=== PATIENT | female | born 1940 | race Caucasian/White ===

== ENCOUNTER → 2016-09-26 | Outpatient (CLI) | payer OTHER ==
[~2016-09-26] MED LIST: ACET-1138 PO; ASPEC81 PO; CALC500C70 PO; IBUP-103 PO; LEVO25TA34 PO; LORA-741 PO; MULT-506 PO; ONDA8TAB6 PO; OXYC-57 PO; OXYSR10 PO; PRED1SUS3 OPB; RXC5 PO; SNK PO
--- NOTE | 2016-09-26 15:01 | MAMMOGRAPHY REPORT ---
BILATERAL DIGITAL SCREENING MAMMOGRAM WITH CAD: 09/26/2016 CLINICAL HISTORY: Routine screening. Patient has no complaints. TECHNIQUE: Current study was also evaluated with a Computer Aided Detection (CAD) system. Bilatera l CC and MLO views were obtained. COMPARISON: Comparison is made to exams dated: 09/29/2014 mammogram, 09/22/2014 mammogram, 09/18/2012 mammogram, 08/23/2011 mammogram, and 09/21/2013 mammogram - [facility]. BREAST COMPOSITION: There are scattered areas of fibroglandular density in both breasts. FINDINGS: No suspicious masses, calcifications, or areas of architectural distortion are noted in e ither breast. There has been no significant interval change compared to prior exams. Bilateral jannette gn-appearing calcifications are not significantly changed. Oval benign-appearing 17 mm mass seen wi thin the right upper outer quadrant is stable dating back to at least the 2006 exam. IMPRESSION: ACR BI-RADS CATEGORY 2: BENIGN There is no mammographic evidence of malignancy. A 1 year screening mammogram is recommended. The p atient will receive written notification of the results. Approximately 10% of breast cancers are not detected with mammography. A negative mammographic repor t should not delay biopsy if a clinically suggestive mass is present. Valentina Jacobs M.D. /:09/26/2016 13:37:03 Artificial Insemination Technician: Jessa Mejia [facility] letter sent: Normal 1/2 BI-RADS Code: ACR BI-RADS Category 2: Benign
== END | disposition home or self-care (01) ==
LOC: C.MAMM 11:19
PROVIDERS: ATTEND Student in an Organized Health Care Education/Training Program
DX: Z12.31 Encounter for screening mammogram for malignant neoplasm of breast (principal)

== ENCOUNTER 2016-09-27 05:41 | Inpatient (IN) | payer OTHER ==
[2016-09-11 10:25] VITALS: BMI 35.0
--- NOTE | 2016-09-11 11:00 | PAT Medication Instructions ---
Service Date Sep 11, 2016. Current Home Medication List Calcium/Vitamin D (Os-Philip 500 Plus D), 1 TAB PO BID Ibuprofen Tab (Advil), 200 MG PO PRN Levothyroxine (Levoxyl), 0.025 MG PO QAM Lorazepam (Ativan), 0.5 MG PO PRN Multivitamin (Multivitamin), 1 TAB PO QPM Oxycodone/Acetaminophen 5MG/325MG (Percocet 5MG/325MG), 1 TABLET PO Q4H PRN for Pain Prednisolone Acetate (Ophth) (Pred Forte 1% Oph), 1 DROP OPB QAM Medication Instructions For Your Scheduled Surgery Ibuprofen Tab (Advil), 200 MG PO PRN (check with surgeon for instructions) - Hold the following medications the morning of surgery: Calcium/Vitamin D (Os-Philip 500 Plus D), 1 TAB PO BID - Take the following medications the morning of surgery with a sip of water: Prednisolone Acetate (Ophth) (Pred Forte 1% Oph), 1 DROP OPB QAM Lorazepam (Ativan), 0.5 MG PO PRN Levothyroxine (Levoxyl), 0.025 MG PO QAM Oxycodone/Acetaminophen 5MG/325MG (Percocet 5MG/325MG), 1 TABLET PO Q4H PRN for Pain (okay to take up to 4 hours prior to surgery if needed) - Take the following medications as scheduled the night before surgery: Multivitamin (Multivitamin), 1 TAB PO QPM Lorazepam (Ativan), 0.5 MG PO PRN Calcium/Vitamin D (Os-Philip 500 Plus D), 1 TAB PO BID Oxycodone/Acetaminophen 5MG/325MG (Percocet 5MG/325MG), 1 TABLET PO Q4H PRN for Pain If you have any questions please call us at [phone] (Michela Angela PA-C) or [phone] or [phone]
[2016-09-11 11:31] LABS: BASO % 0.5 %; BASO ABS # 0.03 K/uL (0-0.2); COMPLETE YES; EOS % 1.9 %; IG% 0.2 %; LYMPH % 25.5 %; MEAN CELL VOLUME 90.9 fL (80-100); MEAN CORPUSCULAR HEMOGLOBIN 29.5 pg (25-34); MEAN CORPUSCULAR HGB CONC 32.5 g/dl (32-36); MEAN PLATELET VOLUME 9.3 fL (7.4-10.4); MONO % 4.4 %; NEUT % 67.5 %; PLATELET COUNT 288 K/uL (130-400); WHITE BLOOD COUNT 5.88 K/uL (4.8-10.8)
--- NOTE | 2016-09-11 11:32 | DIAGNOSTIC IMAGING REPORT ---
TWO VIEW CHEST CLINICAL HISTORY: Preoperative examination. FINDINGS: PA and lateral chest radiographs are compared to study dated 06/11/2012. The heart is mildly enlarged and there is atherosclerotic calcification of the thoracic aorta. The pulmonary vasculature is noncongested. Chronic interstitial thickening is similar to previous. Mild bibasilar atelectasis is observed. Scattered calcified granulomas are noted. The lungs and pleural spaces are otherwise clear. There is no pneumothorax. The skeletal structures are osteopenic. Degenerative change is noted in the thoracic spine. IMPRESSION: Mild cardiomegaly with no active disease in the chest. Electronically signed by: Bridger Crawford M.D. 09/11/2016 11:30 AM Dictated Date/Time: 09/11/2016 11:29 AM
[2016-09-11 11:35] LABS: URINE APPEARANCE CLEAR (CLEAR); URINE BILIRUBIN NEG (NEG); URINE COLOR YELLOW; URINE NITRITE NEG (NEG); URINE PH 5.5 (4.5-7.5); URINE SPECIFIC GRAVITY 1.014 (1.000-1.030); UROBILINOGEN NEG (NEG); ZZUR CULT IF INDIC CLEAN CATCH NO
[2016-09-11 11:41] LABS: MANUAL MICROSCOPIC REQUIRED? NO; REVIEW REQ? NO
[2016-09-11 11:43] LABS: PROTHROMBIN TIME (PATIENT) 10.3 SECONDS (9.0-12.0)
[2016-09-11 11:45] LABS: ESTIMATED AVERAGE GLUCOSE 128 mg/dl; HA1C FLAG Normal (Normal)
[2016-09-11 11:52] LABS: BUN/CREATININE RATIO 13.2 (10-20); CALCIUM 9.2 mg/dl (8.5-10.1); CREATININE 1.1 mg/dl (0.60-1.20); POTASSIUM 4.7 mmol/L (3.5-5.1)
--- NOTE | 2016-09-26 10:21 | HISTORY & PHYSICAL EXAMINATION ---
DATE OF ADMISSION: 09/27/2016 CHIEF COMPLAINT: Right knee pain. HISTORY OF PRESENT ILLNESS: The patient is a 76-year-old female with known osteoarthritis about her right knee. She has had previous conservative care in the past. She has had a previous left total knee arthroplasty which has done well. Due to ongoing pain and disability with her right knee, she now desires to proceed with right total knee arthroplasty. PAST MEDICAL HISTORY: Depression, stage III kidney disease, hypothyroidism, hyperlipidemia. PAST SURGICAL HISTORY: Left total knee as above. MEDICATIONS: Ambien 10 mg at bedtime p.r.n., Ativan 0.5 mg 1 tablet daily p.r.n., Levoxyl 25 mcg daily, Pred Forte 1% ophthalmic solution 1 drop each eye daily, Caltrate Plus 1 tablet twice daily, Centrum once daily, Mccune p.r.n. pain. ALLERGIES: NIACIN. SOCIAL HISTORY AND REVIEW OF SYSTEMS: Noncontributory. PHYSICAL EXAMINATION: GENERAL: Well-nourished, well-developed elderly female who appears her stated age. HEAD, EYES, EARS, NOSE, AND THROAT: Normocephalic, atraumatic, extraocular movements intact, oropharynx pink and moist. NECK: Supple without adenopathy. LUNGS: Clear to auscultation bilaterally. HEART: Regular rate and rhythm. ABDOMEN: Soft, nontender, nondistended. EXTREMITIES: The upper extremities within normal limits. The right knee has neutral alignment. Range of motion from 0-120 degrees. She complains primarily of medial compartment pain. She has mild crepitus with range of motion. X-RAYS: X-rays were reviewed. She has a neutrally aligned knee. She has bone on bone arthritis of the medial compartment with complete loss of the joint space. There is medial osteophyte formation. There is mild to moderate degenerative change about the patellofemoral joint as well. ASSESSMENT: Right knee degenerative joint disease. PLAN: Risks versus benefits were discussed. Consent was obtained. The patient's primary care physician is the [facility] in [place]. Will proceed with right total knee arthroplasty upon preoperative workup and medical clearance.
[2016-09-27] VITALS (8 sets, daily range): BP systolic 98–128; BP diastolic 63–77; PULSE 64–86; TEMP 36–37; O2SAT 93–97; Ht 160 cm; Wt 91.9 kg
[~2016-09-27] VITALS: Ht 160 cm; Wt 91.9 kg
[~2016-09-27 05:41] MED LIST changes: -ACET-1138 PO; -ASPEC81 PO; -ONDA8TAB6 PO; -OXYSR10 PO; -RXC5 PO; -SNK PO
[2016-09-27] MEDS ORDERED: METOCLOPRAMIDE HCL 10 MG TAB PO SCH (06:00)
[2016-09-27] MEDS ORDERED: CEFAZOLIN 2000 MG/60 ML D5W 60 ML IV SCH (06:00)
[2016-09-27] MEDS ORDERED: LACTATED RINGER'S 1000ML 1,000 ML IV SCH (06:00)
[2016-09-27] MEDS ORDERED: LACTATED RINGER'S 1000ML IV SCH (06:00)
[2016-09-27] MEDS ORDERED: FAMOTIDINE 20 MG TAB PO SCH (06:00)
[2016-09-27] MEDS ORDERED: CLONIDINE HCL 0.1 MG/24 HR TRANSDERM SYS TD SCH (06:00)
[2016-09-27] MEDS ORDERED: ROPIVACAINE 5MG/ML 30 ML 150 MG, BUPIVACAINE/EPINEPHR 0.5% MPF 30 ML, KETOROLAC TROMETH... INFIL SCH ×7 (06:00)
[2016-09-27] MEDS ORDERED: GABAPENTIN 300 MG CAP PO SCH (06:00)
[2016-09-27] MEDS ORDERED: DEXAMETHASONE 4 MG TAB PO SCH (06:00)
[2016-09-27] MEDS ORDERED: ACETAMINOPHEN 500 MG TAB PO SCH (06:00)
[2016-09-27] MEDS ORDERED: CeleBREX 200 MG CAP PO SCH (06:00)
[2016-09-27] MEDS ORDERED: LACTATED RINGER'S 1000ML 500 ML IV ONE (06:00)
[2016-09-27] MEDS ORDERED: BUPIVACAINE 0.5 % 5 MG/1 ML PF 10ML VIAL ONE (06:27)
[2016-09-27] MEDS ORDERED: BUPIVACAINE 0.25% 30 ML VIAL ONE (06:28)
[2016-09-27] MEDS ORDERED: MIDAZOLAM HCL 1 MG/ML 2ML VIAL ONE ×2 (06:44)
[2016-09-27] MEDS ORDERED: FENTANYL CITRATE INJ 50 MCG/1 ML 2 ML VIAL ONE (06:44)
[2016-09-27] MEDS ORDERED: ORTHO JOINT ANESTHETIC ONE (07:16)
[2016-09-27] MEDS ORDERED: BACITRACIN 50000 UNIT VIAL ONE (07:17)
[2016-09-27] MEDS ORDERED: POVIDONE-IODINE OP SOLN 30 ML BTL ONE (07:17)
[2016-09-27] MEDS: TRANEXAMIC ACID INJ 1,000 MG in SODIUM CHLORIDE 0.9% 100ML 100 ML IV SCH ×2 (07:24→15:47)
--- NOTE | 2016-09-27 07:26 | History & Physical Bridge Note ---
H&P Re-Evaluation Bridge Note: I have examined the patient, reviewed the History & Physical and in the interval since the performance of the History & Physical I have noted the following changes of clinical significance: No changes noted
[2016-09-27] MEDS ORDERED: ATROPINE SULFATE 0.1 MG/ML 5ML SYR IV PRN (08:00)
[2016-09-27] MEDS ORDERED: EpHEDrine SULFATE INJ 50 MG/ML AMP IV PRN (08:00)
[2016-09-27] MEDS ORDERED: ONDANSETRON INJ 2 MG/ML 2 ML VIAL IV PRN ×2 (08:00→10:00)
[2016-09-27] MEDS ORDERED: PROPOFOL IV EMULSION 10 MG/ML 20 ML VIAL IV ONE (08:21)
[2016-09-27] MEDS ORDERED: LIDOCAINE HCL 2% 2 ML VIAL (20MG/ML) ONE (08:21)
--- NOTE | 2016-09-27 09:15 | [facility] Post Operative Brief Note ---
Immediate Operative Summary Operative Date Sep 27, 2016. Pre-Operative Diagnosis Right knee degenerative joint disease Post-Operative Diagnosis Same as preop Procedure(s) Performed Right total knee arthroplasty Surgeon Dr. Figueredo Chair Upholsterer Surgeon(s) Yue Linares PA-C Estimated Blood Loss 10 cc Findings severe OA Specimens A: right knee bone and tissue Disposition Recovery Room / PACU
--- NOTE | 2016-09-27 09:33 | OPERATIVE REPORT ---
DATE OF OPERATION: 09/27/2016 PREOPERATIVE DIAGNOSIS: Osteoarthritis, right knee. POSTOPERATIVE DIAGNOSIS: Osteoarthritis, right knee. PROCEDURE: Right total knee arthroplasty. SURGEON: Dr. Figueredo. SALES AND CATERING COORDINATOR: JOIE Villarreal. ANESTHESIA: Spinal COMPLICATIONS: None. OPERATION AND FINDINGS: Following induction of spinal anesthesia, the patient's right leg was prepped and draped in the usual sterile manner. Limb was exsanguinated with an Esmarch bandage and tourniquet was inflated to 350 mmHg. A longitudinal incision was made anteriorly. Subcutaneous tissue was sharply dissected. Electrocautery was used for hemostasis. Prepatellar bursa was incised and median parapatellar incision was performed. Patella was everted and the knee was flexed. Fat pad was removed to aid in visualization and the anterior and posterior cruciate ligaments were removed. The medial face of the tibia was cleared of soft tissue first with a Bovie and a Tariq elevator. This tissue was retracted posteriorly using a blunt Hohmann. A Vasquez retractor was used to expose the synovium above on the anterior aspect of the femur and this was removed down to bone. The PSI guide was placed on the distal femur and two pins were placed anteriorly and kept in position and two additional pins were placed distally and removed. The distal femoral cutting block was placed in position and the distal femoral cut was used in the +0 setting. Next, the cutting block was removed and the size 3 block was placed in the distal end of the femur. Care was taken to ensure appropriate external rotation and feeler gauge was used to ensure no notching would occur. The femoral block was centered on the distal femur and in the medial and lateral direction and was fixed using two bone screws. The gold pins were then removed. The oscillating saw was used to create the bone cuts and the distal femoral cutting block was removed and the reciprocating saw was used to further trim the femoral cuts as well as a deep in the area for the trochlear groove. Next, posterior condyle remnants were removed. Following this, a meniscal clamp and knife were utilized to remove the anterior portion of both medial and lateral meniscus. The proximal tibia PSI guide was placed into position and the proximal tibial cutting guide was screwed into position. The extra medullary alignment guide was utilized to ensure appropriate alignment. The proximal tibia was cut and the proximal tibial cutting block was removed and this bone fragment was removed. The appropriate guide was used to perform the notch cut on the distal femur and a lamina dust sampler and a cochlear knife were utilized to finish both medial and lateral meniscectomies to remove any remnants of the posterior or anterior cruciate ligaments. Following this, the distal femoral component was impacted into position and blunt Issa was used to sublux the tibia anteriorly. The proximal tibia was sized and a size 3 tibial tray was chosen as the size to be used. This was put into position and appropriate external rotation and a double check with extramedullary alignment guide was performed. The canal for the tibial stem was prepared first with a 17 mm drill and then the punch and a mallet and the trial tibial poly was placed. An 11 mm constrained was chosen the size to be used. It was brought to extension and the patella was prepared with the patellar reamer. A size 36 component was chosen the size to be used. The trial component was placed and knee was taken through a full range of motion and there was found to be no lateral subluxation of the tibia. No lateral release was required. The trials were all removed. The final components were obtained and assembled. Cement was mixed. The knee was thoroughly irrigated and the ortho mix was injected about the knee joint. The final components were cemented into position. After thoroughly suctioning and drying the bone ends, all excess cement was removed. The knee was held in extension while the cement hardened. The wound was irrigated and closed over a Hemovac drain. #1 Vicryl was used to close the extensor mechanism. Subcutaneous tissues closed using 0 Dexon. Skin was closed with john. Sterile dressing of Adaptic, 4 x 4's, sterile Webril, and Gume was applied. The patient tolerated the procedure well, recovery room stable. Due to the complex nature of the procedure, the entire surgery was performed with the operational assistance of JOIE Villarreal. The senior executive assistant, under direct supervision, was involved in the actual performance of all aspects of the surgical procedure including hemostasis, tissue retraction and incision, instrument management, patient positioning, and wound closure. I attest to the content of the Intraoperative Record and any orders documented therein. Any exceptio ns are noted below.
[2016-09-27] MEDS ORDERED: DiphenhydrAMINE HCL 50 MG/ML VIAL IV PRN (10:00)
[2016-09-27] MEDS ORDERED: MoRPHine SULFATE 2 MG/ML CARP IV PRN (10:00)
[2016-09-27] MEDS ORDERED: MAGNESIUM HYDROXIDE SUSP 30 ML UDC PO PRN (10:00)
[2016-09-27] MEDS ORDERED: LORAZEPAM 0.5 MG TAB PO PRN (10:00)
[2016-09-27] MEDS ORDERED: BISACODYL 10 MG SUPP PR PRN (10:00)
[2016-09-27] MEDS ORDERED: ZOLPIDEM TARTRATE 5 MG TAB PO PRN (10:00)
[2016-09-27] MEDS ORDERED: ALUMINUM/MAGNESIUM/SIMETH (MAALOX MAX) 30 ML UDC PO PRN (10:00)
--- NOTE | 2016-09-27 11:01 | DIAGNOSTIC IMAGING REPORT ---
RIGHT KNEE 1 OR 2 VIEWS ROUTINE CLINICAL HISTORY: Osteoarthritis. COMPARISON: None DISCUSSION: There are postsurgical changes of a total right knee arthroplasty and patellar resurfacing. The femoral and tibial components appear well seated. Overlying skin john and surgical drains are evident. IMPRESSION: Postsurgical changes of a total right knee arthroplasty. Electronically signed by: Mukesh Gonzales M.D. 09/27/2016 11:00 AM Dictated Date/Time: 09/27/2016 10:59 AM
--- NOTE | 2016-09-27 11:03 | Anesthesiology Progress Note ---
Anesthesia Post Op Note Date & Time Sep 27, 2016 at 11:04 Vital Signs Pain Intensity: 0 Vital Signs Past 12 Hours Date Time Temp Pulse Resp B/P Pulse Ox O2 Delivery O2 Flow Rate FiO2 09/27/16 10:40 37.0 64 16 123/50 97 Nasal Cannula 2 09/27/16 10:37 58 13 09/27/16 10:37 57 13 97 09/27/16 10:35 112/67 09/27/16 10:32 74 14 09/27/16 10:32 79 14 94 09/27/16 10:31 61 20 09/27/16 10:31 61 20 95 09/27/16 10:30 107/71 09/27/16 10:26 61 14 98 09/27/16 10:26 60 14 09/27/16 10:25 112/71 09/27/16 10:21 60 15 96 09/27/16 10:21 60 15 09/27/16 10:20 117/65 09/27/16 10:16 68 15 97 09/27/16 10:16 67 15 09/27/16 10:15 95/73 09/27/16 10:12 61 12 98 09/27/16 10:12 61 12 09/27/16 10:10 101/57 09/27/16 10:07 67 19 09/27/16 10:07 65 19 98 09/27/16 10:05 107/55 09/27/16 10:02 69 11 09/27/16 10:02 70 11 97 09/27/16 10:00 104/62 09/27/16 09:57 73 16 09/27/16 09:57 76 16 111/59 97 09/27/16 09:57 36.2 76 16 111/59 97 Nasal Cannula 2 09/27/16 07:11 97 Room Air 09/27/16 07:03 36 70 20 120/70 95 Room Air Notes Mental Status: alert / awake / arousable, participated in evaluation Pt Amnestic to Procedure: Yes Nausea / Vomiting: adequately controlled Pain: adequately controlled Airway Patency, RR, SpO2: stable & adequate BP & HR: stable & adequate Hydration State: stable & adequate Neuraxial Anesthesia: was administered, sensory block is resolving Anesthetic Complications: no major complications apparent
[2016-09-27] MEDS ORDERED: MoRPHine SULFATE 10 MG/ML CARP/VIAL IV PRN (12:00)
[2016-09-27] MEDS ORDERED: MoRPHine SULFATE 4 MG/ML 1 ML CARP\\VIAL IV PRN (12:00)
[2016-09-27] MEDS: OXYCODONE HCL IR 5 MG TAB (IMMEDIATE RELEASE) PO PRN (15:46)
[2016-09-27] MEDS: D5W AND 1/2NSS + 20MEQ KCL 1,000 ML IV SCH (15:53)
[2016-09-27] MEDS: CEFAZOLIN IV 2,000 MG in DEXTROSE 5% 50ML 50 ML IV SCH ×2 (15:53→23:47)
[2016-09-27] MEDS: KETOROLAC TROMETHAMINE 15 MG/ML VIAL IV. SCH ×2 (16:16→21:25)
[2016-09-27] MEDS: FERROUS GLUCONATE 324 MG TAB PO SCH (18:44)
[2016-09-27] MEDS: SENNA 8.6 MG TAB PO SCH (21:24)
[2016-09-27] MEDS: DOCUSATE SODIUM 100 MG CAP PO SCH (21:24)
[2016-09-27] MEDS: ACETAMINOPHEN 500 MG TAB PO SCH (21:24)
[2016-09-27] MEDS: MULTIVITAMIN TAB PO SCH (21:25)
[2016-09-27] MEDS: ASPIRIN 81 MG ECTAB PO SCH (21:25)
[2016-09-27] MEDS: CALCIUM 600MG + VIT D 400 IU TAB PO SCH (21:25)
[2016-09-27] MEDS: OXYCODONE HCL 10 MG TABCR (OXYCONTIN) PO SCH (21:27)
[2016-09-28] VITALS (8 sets, daily range): BP systolic 103–136; BP diastolic 69–80; PULSE 60–71; TEMP 36.3–36.8; O2SAT 96–98
[2016-09-28] MEDS: D5W AND 1/2NSS + 20MEQ KCL 1,000 ML IV SCH (01:50)
[2016-09-28] MEDS: KETOROLAC TROMETHAMINE 15 MG/ML VIAL IV. SCH ×2 (03:37→10:21)
[2016-09-28] MEDS: ACETAMINOPHEN 500 MG TAB PO SCH ×3 (06:09→21:03)
[2016-09-28] MEDS: LEVOTHYROXINE 25 MCG TAB PO SCH (06:09)
[2016-09-28 06:10] LABS: HEMATOCRIT 32.5 % (37-47); MEAN CORPUSCULAR HEMOGLOBIN 29.1 pg (25-34); MEAN PLATELET VOLUME 9.6 fL (7.4-10.4); PLATELET COUNT 220 K/uL (130-400); RED BLOOD COUNT 3.57 M/uL (4.2-5.4); WHITE BLOOD COUNT 10.93 K/uL (4.8-10.8)
[2016-09-28 06:46] LABS: BUN/CREATININE RATIO 16.7 (10-20); CALCIUM 8.2 mg/dl (8.5-10.1); CREATININE 1.2 mg/dl (0.60-1.20); POTASSIUM 4.7 mmol/L (3.5-5.1)
--- NOTE | 2016-09-28 07:27 | Orthopedic Progress Note ---
Orthopedic Progress Note Date of Service Sep 28, 2016. Subjective Post OP Day: 1 Reports: feeling well Objective N/V intact, dressing C/D/I (Hemovac and prevena in place), toes mobile Date Time Temp Pulse Resp B/P Pulse Ox O2 Delivery O2 Flow Rate FiO2 09/28/16 03:00 36.4 68 16 118/80 97 Room Air 09/27/16 23:40 Room Air 09/27/16 23:05 36.5 77 18 128/68 96 Room Air 09/27/16 20:23 36.7 64 18 98/63 94 Room Air 09/27/16 16:30 36.8 86 16 111/68 96 Nasal Cannula 2.0 09/27/16 16:15 Nasal Cannula 2.0 09/27/16 15:30 36.7 76 16 105/70 94 Nasal Cannula 2.0 09/27/16 14:30 36.8 71 16 119/77 93 Nasal Cannula 2.0 09/27/16 14:02 96 2.0 09/27/16 13:30 37.0 75 16 121/75 96 Nasal Cannula 2.0 09/27/16 13:30 Nasal Cannula 2.0 09/27/16 13:11 68 16 94 09/27/16 13:11 68 16 09/27/16 13:10 101/66 09/27/16 13:06 70 16 09/27/16 13:06 69 16 94 09/27/16 13:05 106/61 09/27/16 13:01 73 18 09/27/16 13:01 73 18 96 09/27/16 13:00 111/60 09/27/16 12:56 69 18 93 09/27/16 12:56 68 18 09/27/16 12:55 115/67 09/27/16 12:51 68 16 94 09/27/16 12:51 69 16 09/27/16 12:50 111/69 09/27/16 12:46 75 23 09/27/16 12:46 75 23 95 09/27/16 12:45 112/66 09/27/16 12:41 70 20 94 09/27/16 12:41 70 20 09/27/16 12:40 111/64 09/27/16 12:39 68 22 09/27/16 12:39 67 22 94 09/27/16 12:35 110/66 09/27/16 12:34 67 16 94 09/27/16 12:34 68 16 09/27/16 12:31 114/56 09/27/16 12:29 80 17 94 09/27/16 12:29 80 17 09/27/16 12:24 74 21 96 09/27/16 12:24 74 21 09/27/16 12:20 113/62 09/27/16 12:19 76 16 09/27/16 12:19 76 16 96 09/27/16 12:15 119/76 09/27/16 12:14 79 16 09/27/16 12:14 79 16 96 09/27/16 12:10 117/62 09/27/16 12:09 76 19 09/27/16 12:09 76 19 95 09/27/16 12:05 106/68 09/27/16 12:04 74 17 95 09/27/16 12:04 74 17 09/27/16 12:00 99/61 09/27/16 11:59 69 18 94 09/27/16 11:59 69 18 09/27/16 11:55 103/64 09/27/16 11:54 71 16 09/27/16 11:54 70 16 94 09/27/16 11:50 93/55 09/27/16 11:49 67 20 09/27/16 11:49 67 20 94 09/27/16 11:45 100/52 09/27/16 11:44 64 16 94 09/27/16 11:44 63 16 09/27/16 11:40 104/50 09/27/16 11:39 67 21 09/27/16 11:39 67 21 93 09/27/16 11:35 97/62 09/27/16 11:34 63 15 09/27/16 11:34 63 15 93 09/27/16 11:30 105/62 09/27/16 11:29 65 16 95 09/27/16 11:29 65 16 09/27/16 11:25 97/79 09/27/16 11:24 64 18 93 09/27/16 11:24 67 18 09/27/16 11:20 98/59 09/27/16 11:19 65 21 09/27/16 11:19 67 21 93 09/27/16 11:15 112/58 09/27/16 11:14 64 19 95 09/27/16 11:14 64 19 09/27/16 11:13 65 18 97 09/27/16 11:13 65 18 09/27/16 11:10 107/62 09/27/16 11:08 65 15 94 09/27/16 11:08 65 15 09/27/16 11:05 97/55 09/27/16 11:03 66 15 09/27/16 11:03 65 15 93 09/27/16 11:00 112/55 09/27/16 10:58 68 15 97 09/27/16 10:58 69 15 09/27/16 10:55 123/63 09/27/16 10:53 63 13 94 09/27/16 10:53 63 13 09/27/16 10:50 99/64 09/27/16 10:48 61 14 09/27/16 10:48 60 14 97 09/27/16 10:45 123/50 09/27/16 10:43 69 21 09/27/16 10:43 67 21 93 09/27/16 10:40 107/59 09/27/16 10:40 37.0 64 16 123/50 97 Nasal Cannula 2 09/27/16 10:38 60 15 97 09/27/16 10:38 60 15 09/27/16 10:37 58 13 09/27/16 10:37 57 13 97 09/27/16 10:35 112/67 09/27/16 10:32 74 14 09/27/16 10:32 79 14 94 09/27/16 10:31 61 20 09/27/16 10:31 61 20 95 09/27/16 10:30 107/71 09/27/16 10:26 61 14 98 09/27/16 10:26 60 14 09/27/16 10:25 112/71 09/27/16 10:21 60 15 96 09/27/16 10:21 60 15 09/27/16 10:20 117/65 09/27/16 10:16 68 15 97 09/27/16 10:16 67 15 09/27/16 10:15 95/73 09/27/16 10:12 61 12 98 09/27/16 10:12 61 12 09/27/16 10:10 101/57 09/27/16 10:07 67 19 09/27/16 10:07 65 19 98 09/27/16 10:05 107/55 09/27/16 10:02 69 11 09/27/16 10:02 70 11 97 09/27/16 10:00 104/62 09/27/16 09:57 73 16 09/27/16 09:57 76 16 111/59 97 09/27/16 09:57 36.2 76 16 111/59 97 Nasal Cannula 2 Laboratory Results 24 Hours: Test 09/28/16 05:14 Hematocrit 32.5 % Hemoglobin 10.4 g/dL Assessment & Plan Assessment: 76 yo female stable POD #1 s/p right TKA Plan: 1. Med management 2. DVT prophylaxis- ASA, TEDs, SCDs 3. PT/OT 4. D/C planning- home w/ OPPT
--- NOTE | 2016-09-28 07:30 | Discharge Instructions ---
Discharge Instructions Date of Service Sep 28, 2016. Admission Reason for Admission: Right Knee Osteoarthritis Discharge Discharge Diagnosis / Problem: Right knee arthritis Discharge Goals Goal(s): Decrease discomfort, Improve function Activity Recommendations Activity Limitations: as noted below Weightbearing Status: Right weightbearing (as tolerated) . Instructions / Follow-Up Instructions / Follow-Up ACTIVITY RECOMMENDATIONS: SELF CARE INSTRUCTIONS AFTER TOTAL KNEE REPLACEMENT A. You may need to continue a physical therapy program after discharge from the hospital. There are several options available to you. Your doctor will assist you in selecting the best one for you. 1. An out-patient facility 2 to 3 times a week for therapy or home therapy. 2. Continue working on all exercises taught to you in the hospital. Your goals should be to increase bending of your knee to 90 degrees and beyond and to fully straighten your knee. B. You may progress at your own pace from walking with a walker or crutches to a cane; then to no assistive devices. C. Make walking a part of your daily routine. Be up as much as comfortable with rest periods throughout the day. Rest with leg elevation is very important. Use the ice wrap frequently for the first 3-4 weeks. D. There are no restrictions on activities. You may ride in a car, shop, participate in position classifier and all social activities. E. Wear the long elastic stockings (TIMOTHY hose) 20 hours a day for 2 weeks after surgery. They can be removed several times a day for laundering and for a bath. F. You may shower, no tub baths until cleared by your doctor. SPECIAL CARE INSTRUCTIONS: VERY IMPORTANT TO READ AND REVIEW A. There are a few signs you need to watch for after you are home. Call [facility] if you notice any of the followin. Increased severe knee pain. Some pain is expected especially when you exercise. 2. Increased swelling in your leg or knee; pain or swelling of the calf muscle in either lower leg. 3. Any fluid drainage from the incision. 4. Shortness of breath or chest pain. B. Please call [facility] at if you have any concerns or questions about your operation or recovery. The doctor or his nurse will return your call promptly. C. You must take antibiotics before dental work, bladder, bowel or other surgery. Your doctor will provide you with a permanent care to carry describing this precaution. IMPORTANT: * REMEMBER TO TAKE ASPIRIN, 81 MG, TWICE DAILY FOR 4 WEEKS UNLESS OTHERWISE DIRECTED. THIS IS YOUR BLOOD THINNER. * HIGH RISK PATIENTS MAY BE PRESCRIBED A STRONGER BLOOD THINNER. THIS WILL BE PROVIDED AT DISCHARGE. * CALL IF INCREASED PAIN, REDNESS, DRAINAGE OR FEVER GREATER THAT 101. * WEAR TIMOTHY HOSE 20 HOURS PER DAY FOR 2 WEEKS. Prevena- This is a large suction dressing covering your incision. This will help pull any excess drainage from the wound and allow your incision to heal properly. You may shower with this if you can keep the unit outside of the shower. If any bleeding or leakage is noted please call your doctor's office. This will remain on your incision for 7 days and then should be removed. This can be done yourself or by the home nursing staff if applicable. The entire unit is disposable once removed. Once removed, keep incision clean and dry. If redness or drainage is noted, please call your surgeon. FOLLOW UP VISIT: If appointment is not already scheduled: Please call [facility] to make a follow-up appointment for 2 weeks after your surgery at . Current Hospital Diet Patient's current hospital diet: Regular Diet Discharge Diet Recommended Diet: Regular Diet Procedures Procedures Performed: Right total knee arthroplasty Pending Studies Studies pending at discharge: no Laboratory Results Hemoglobin A1c Test 09/11/16 11:07 Range/Units Estimated Average Glucose 128 mg/dl Hemoglobin A1c 6.1 H 4.5-5.6 % Medical Emergencies . Who to Call and When: Medical Emergencies: If at any time you feel your situation is an emergency, please call 911 immediately. . Non-Emergent Contact Non-Emergency issues call your: Surgeon Call Non-Emergent contact if: temperature is above 101.5, your pain is not controlled, wound has increased drainage, wound has increased redness . "Provider Documentation" section prepared by Darrel Schaefer PA-C. VTE Core Measure Inpt VTE Proph given/why not?: Other Anticoagulation (ASA 81mg bid), T.E.D. Stockings, SCD's [place] Drug Monitoring Program Search Results: patient reviewed within database, no issues identified
[2016-09-28] MEDS: FERROUS GLUCONATE 324 MG TAB PO SCH ×3 (09:15→18:27)
[2016-09-28] MEDS: ASPIRIN 81 MG ECTAB PO SCH ×2 (09:15→21:04)
[2016-09-28] MEDS: PANTOprazole SOD 40 MG TAB PO SCH (09:15)
[2016-09-28] MEDS: CALCIUM 600MG + VIT D 400 IU TAB PO SCH ×2 (09:15→21:04)
[2016-09-28] MEDS: DOCUSATE SODIUM 100 MG CAP PO SCH ×2 (09:15→21:33)
[2016-09-28] MEDS: PrednisoLONE ACET 1% OP SUSP 5 ML BTL OPB SCH (09:15)
[2016-09-28] MEDS: OXYCODONE HCL 10 MG TABCR (OXYCONTIN) PO SCH ×2 (09:17→21:08)
[2016-09-28] MEDS: SENNA 8.6 MG TAB PO SCH (21:33)
[2016-09-28] MEDS: MULTIVITAMIN TAB PO SCH (21:34)
[2016-09-29] MEDS: OXYCODONE HCL IR 5 MG TAB (IMMEDIATE RELEASE) PO PRN ×2 (03:31→10:16)
[2016-09-29] MEDS: LEVOTHYROXINE 25 MCG TAB PO SCH (05:59)
[2016-09-29] MEDS: ACETAMINOPHEN 500 MG TAB PO SCH (06:00)
[2016-09-29] MEDS: PrednisoLONE ACET 1% OP SUSP 5 ML BTL OPB SCH (07:14)
[2016-09-29 07:55] VITALS: BP 118/76; PULSE 70; TEMP 36.5; O2SAT 95
--- NOTE | 2016-09-29 08:16 | Orthopedic Progress Note ---
Orthopedic Progress Note Date of Service Sep 29, 2016. Subjective Post OP Day: 2 Reports: feeling well, Denies: SOB, calf pain, chest pain, light headedness, nausea / vomiting Objective calves soft nontender, N/V intact, dressing C/D/I (PREVENA), A&O x3, toes mobile Date Time Temp Pulse Resp B/P Pulse Ox O2 Delivery O2 Flow Rate FiO2 09/29/16 07:55 36.5 70 20 118/76 95 Room Air 09/29/16 00:40 Room Air 09/28/16 23:13 36.5 71 16 116/73 97 Room Air 09/28/16 19:27 36.8 68 16 103/69 97 Room Air 09/28/16 16:00 97 Room Air 09/28/16 15:16 36.8 68 16 136/80 97 Room Air 09/28/16 12:37 36.3 66 17 108/70 96 Room Air 09/28/16 10:42 98 Room Air 09/28/16 08:22 Room Air Assessment & Plan Assessment: 76 yo female stable POD #2 s/p right TKA Plan: 1. Med management 2. DVT prophylaxis- ASA, TEDs, SCDs 3. PT/OT 4. D/C planning- home w/ OPPT. DC HOME TODAY AFTER PT
[2016-09-29] MEDS ORDERED: ASPEC81 PO (08:18)
[2016-09-29] MEDS ORDERED: SNK PO (08:18)
[2016-09-29] MEDS ORDERED: ACET-1138 PO (08:18)
[2016-09-29] MEDS ORDERED: RXC5 PO (08:18)
[2016-09-29] MEDS ORDERED: OXYSR10 PO (08:18)
[2016-09-29] MEDS ORDERED: ONDA8TAB6 PO (08:18)
[2016-09-29] MEDS: OXYCODONE HCL 10 MG TABCR (OXYCONTIN) PO SCH (08:24)
[2016-09-29] MEDS: CALCIUM 600MG + VIT D 400 IU TAB PO SCH (08:24)
[2016-09-29] MEDS: PANTOprazole SOD 40 MG TAB PO SCH (08:24)
[2016-09-29] MEDS: FERROUS GLUCONATE 324 MG TAB PO SCH (08:24)
[2016-09-29] MEDS: DOCUSATE SODIUM 100 MG CAP PO SCH (08:24)
[2016-09-29] MEDS: ASPIRIN 81 MG ECTAB PO SCH (08:24)
[2016-09-29 10:17] VITALS: O2SAT 95
[2016-09-29 10:24] VITALS: BP 118/76; PULSE 71; TEMP 36.5; O2SAT 95
--- NOTE | 2016-10-04 14:51 | DISCHARGE SUMMARY ---
DISCHARGE DIAGNOSIS: Degenerative joint disease, right knee. SECONDARY DIAGNOSES: Depression, chronic kidney disease stage III, hypothyroidism, hyperlipidemia. CONSULTS: None. COMPLICATIONS: None. PROCEDURES: Right total knee arthroplasty performed by Dr. Figueredo on 09/27/2016. BRIEF HISTORY: As dictated in history and physical. HOSPITAL SUMMARY: The patient was admitted on the above noted date and had the above-noted surgery performed which she tolerated well. On the first postoperative day, patient was feeling well and had no complaints. Neurovascularly intact. Dressings clean, dry and intact. Toes were mobile. Vital signs were stable. They were afebrile. Hemoglobin was 10.4 and she was started on protocol and continued on DVT prophylaxis and pain management. By the patient's second postoperative day she was feeling well and had no complaints. Calves were soft, nontender, neurovascularly intact. Dressings clean, dry and intact. Toes were mobile and she was progressing well with physical therapy. Vital signs remaining stable and it was felt that she could be discharged to home with outpatient PT on 09/29/2016. For further review, please see chart. LAB AND X-RAY DATA: As per chart. DISCHARGE INSTRUCTIONS: The patient was discharged to home in satisfactory condition on 09/29/2016. DIET: Regular. ACTIVITY: Follow TK instruction sheets and special care instructions as noted, weightbearing as tolerated right lower extremity. Follow up with Dr. Figueredo in 2 weeks. The patient to call for appointment if one has not been made for you. DISCHARGE MEDICATIONS: Acetaminophen 1000 mg p.o. q. 8 hours for 30 days, aspirin 81 mg p.o. b.i.d. for 30 days, Zofran 8 mg p.o. q. 8 hours p.r.n. nausea, oxycodone 10 mg p.o. q. 12 hours, oxycodone 5-10 mg p.o. q. 4 hours p.r.n., senna 17.2 mg at bedtime, resume taking Os-Philip 500 plus D 1 tab p.o. b.i.d., levothyroxine 0.025 mcg p.o. q.a.m., lorazepam 0.5 mg p.o. p.r.n., multivitamin 1 tab p.o. q.p.m. Pred Forte 1% ophthalmic drops 1 drop OPB q.a.m. Stop taking ibuprofen and Percocet.
== END 2016-09-29 12:05 | disposition home or self-care (01) | DRG 470 ==
LOC: ENRESERVTM → ENRESERVDT → C.ACU 05:41 → C.3E 10:02
PROC: 0SRC0J9 Replacement of Right Knee Joint with Synthetic Substitute, Cemented, Open Approach (ICD-10-PCS; principal; 2016-09-27 08:00)
DX: M17.11 Unilateral primary osteoarthritis, right knee (principal); E03.9 Hypothyroidism, unspecified; E78.5 Hyperlipidemia, unspecified; N18.3 Chronic kidney disease, stage 3 (moderate); F32.9 Major depressive disorder, single episode, unspecified; F41.9 Anxiety disorder, unspecified; E66.9 Obesity, unspecified; G47.00 Insomnia, unspecified; Z96.652 Presence of left artificial knee joint; Z79.899 Other long term (current) drug therapy; Z79.1 Long term (current) use of non-steroidal anti-inflammatories (NSAID); Z68.35 Body mass index [BMI] 35.0-35.9, adult; Z79.891 Long term (current) use of opiate analgesic

== ENCOUNTER → 2016-11-05 | Outpatient (CLI) | payer OTHER ==
[~2016-11-05] MED LIST changes: +ACET-1138 PO; +ASPEC81 PO; -IBUP-103 PO; +ONDA8TAB6 PO; -OXYC-57 PO; +OXYSR10 PO; +RXC5 PO; +SNK PO
--- NOTE | 2016-11-05 13:03 | DIAGNOSTIC IMAGING REPORT ---
RIGHT LOWER EXTREMITY VENOUS DOPPLER CLINICAL HISTORY: Right leg pain and swelling status post total knee arthroplasty. COMPARISON STUDY: No previous studies for comparison. TECHNIQUE: Sonography of the deep venous system of the right lower extremity was performed. Compression and augmentation were evaluated. FINDINGS: The right common femoral, superficial femoral and popliteal veins were compressible. Augmentation was normal. Flow was shown within the deep calf vessels. IMPRESSION: No evidence of deep venous thrombus within the right lower extremity. Electronically signed by: Rigo Sanchez M.D. 11/05/2016 1:02 PM Dictated Date/Time: 11/05/2016 12:40 PM
== END | disposition home or self-care (01) ==
LOC: C.ULTRBC 11:12
DX: Z96.651 Presence of right artificial knee joint (principal); M79.604 Pain in right leg; R60.0 Localized edema

== ENCOUNTER → 2017-10-15 | Outpatient (CLI) | payer OTHER ==
[~2017-10-15] MED LIST changes: -ASPEC81 PO; +ASPI-320 PO; -ONDA8TAB6 PO
--- NOTE | 2017-10-17 07:55 | MAMMOGRAPHY REPORT ---
BILATERAL DIGITAL SCREENING MAMMOGRAM TOMOSYNTHESIS WITH CAD: 10/15/2017 CLINICAL HISTORY: Routine screening. Patient has no complaints. TECHNIQUE: Breast tomosynthesis in addition to standard 2D mammography was performed. Current study was also evaluated with a Computer Aided Detection (CAD) system. COMPARISON: Comparison is made to exams dated: 09/26/2016 mammogram, 09/26/2015 mammogram, 09/22/2014 m ammogram, 09/21/2013 mammogram, 09/18/2012 mammogram - [facility], and 06/12/2007. BREAST COMPOSITION: There are scattered areas of fibroglandular density in both breasts. FINDINGS: There is a stable circumscribed benign 2 cm mass in the right upper outer quadrant. George us benign coarse calcifications and stable groupings of punctate and round microcalcifications bilate rally. No new suspicious mass, architectural distortion or cluster of microcalcifications is seen. IMPRESSION: ACR BI-RADS CATEGORY 1: NEGATIVE There is no mammographic evidence of malignancy. A 1 year screening mammogram is recommended. The pa tient will receive written notification of the results. Approximately 10% of breast cancers are not detected with mammography. A negative mammographic report should not delay biopsy if a clinically suggestive mass is present. Gloria Villagomez M.D. ay/:10/15/2017 16:40:44 Events Traffic Controller: Naye HELMS)(Matteo), [facility] letter sent: Normal 1/2 BI-RADS Code: ACR BI-RADS Category 1: Negative
== END | disposition home or self-care (01) ==
LOC: C.MAMM 13:01
PROVIDERS: ATTEND Physician Assistant
DX: Z12.31 Encounter for screening mammogram for malignant neoplasm of breast (principal)